=== PATIENT | female | born 1960 | race Native Hawaiian/Other Pacific Islander ===

== ENCOUNTER 2020-07-29 10:17 | Outpatient (CLI) | payer OTHER | END 2020-07-29 23:34 | disposition home or self-care (01) | LOC: RAD 10:17 | DX: F32.9 Major depressive disorder, single episode, unspecified (principal); M81.0 Age-related osteoporosis without current pathological fracture; M19.90 Unspecified osteoarthritis, unspecified site; G56.00 Carpal tunnel syndrome, unspecified upper limb ==

== ENCOUNTER 2020-10-13 10:49 | Outpatient (CLI) | payer OTHER | END 2020-10-13 21:06 | disposition home or self-care (01) | LOC: RAD 10:49 | PROVIDERS: ATTEND Internal Medicine | DX: F32.9 Major depressive disorder, single episode, unspecified (principal); M81.0 Age-related osteoporosis without current pathological fracture; M19.90 Unspecified osteoarthritis, unspecified site; G56.00 Carpal tunnel syndrome, unspecified upper limb ==

== ENCOUNTER 2020-12-15 09:50 | Day surgery (SDC) | payer BC ==
[2020-12-10 10:11] LABS: PLATELET COUNT 215 K/uL (152-353)
[2020-12-10 10:20] LABS: POTASSIUM 4.5 mmol/L (3.6-5.2)
[~2020-12-15] VITALS: Ht 30.5 cm; Wt 0.5 kg
== END 2020-12-15 12:25 | disposition home or self-care (01) ==
LOC: OR 09:50
PROVIDERS: ATTEND Internal Medicine Gastroenterology
PROC: 0DBP8ZZ Excision of Rectum, Via Natural or Artificial Opening Endoscopic (ICD-10-PCS; principal; 2020-12-15)
DX: K62.1 Rectal polyp (principal); K63.5 Polyp of colon; K57.30 Diverticulosis of large intestine without perforation or abscess without bleeding; K64.8 Other hemorrhoids; Z12.11 Encounter for screening for malignant neoplasm of colon; Z86.010 Personal history of colon polyps; Z20.828 Contact with and (suspected) exposure to other viral communicable diseases
CPT/HCPCS: 80053; 85027; 87635; J2001; J2704; U0003

== ENCOUNTER 2022-03-27 12:53 | Outpatient (CLI) | payer BC | END 2022-03-27 19:01 | disposition home or self-care (01) | LOC: US 12:53 | PROVIDERS: ATTEND Internal Medicine | DX: I73.9 Peripheral vascular disease, unspecified (principal); F17.200 Nicotine dependence, unspecified, uncomplicated ==

== ENCOUNTER 2022-09-07 08:53 | Outpatient (CLI) | payer OTHER | END 2022-09-07 19:03 | disposition home or self-care (01) | LOC: MAMMO 08:53 | PROVIDERS: ATTEND Internal Medicine | DX: Z12.31 Encounter for screening mammogram for malignant neoplasm of breast (principal); Z13.820 Encounter for screening for osteoporosis; N95.8 Other specified menopausal and perimenopausal disorders ==

== ENCOUNTER 2022-11-20 11:19 | Outpatient (CLI) | payer OTHER | END 2022-11-20 19:04 | disposition home or self-care (01) | LOC: RAD 11:19 | PROVIDERS: ATTEND Internal Medicine | DX: R05.3 Chronic cough (principal); Z86.16 Personal history of COVID-19; Z09 Encounter for follow-up examination after completed treatment for conditions other than malignant neoplasm ==